=== PATIENT | male | born 1960 | race Caucasian/White ===

== ENCOUNTER 2017-03-02 15:59 | Emergency (ER) | payer OTHER ==
[2017-03-02 16:10] VITALS: BP 135/84; PULSE 84; TEMP 98.1; BMI 23.7
[2017-03-02] MEDS ORDERED: IBUPROFEN 400 MG TABLET (FP) PO ONE ×2 (16:55→16:58)
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
== END 2017-03-02 18:19 | disposition home or self-care (01) ==
LOC: JERFT 15:59 → JER 15:59 → JERFT 18:19
DX: M25.512 Pain in left shoulder (principal); M25.562 Pain in left knee; V89.2XXA Person injured in unspecified motor-vehicle accident, traffic, initial encounter; Y92.488 Other paved roadways as the place of occurrence of the external cause; Y93.9 Activity, unspecified; Y99.9 Unspecified external cause status
CPT/HCPCS: 73562-TC-LT; 99281-25

== ENCOUNTER 2019-04-09 20:44 | Emergency (ER) | payer OTHER ==
[2019-04-09 21:09] VITALS: BP 120/47; PULSE 88; TEMP 98.5; BMI 22.1
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
[2019-04-09] MEDS ORDERED: DIPHTH,PERTUSS(ACELL),TET 0.5 ML DISP.SYRIN IM ONE ×2 (22:59→23:02)
[2019-04-09] MEDS ORDERED: ACETAMINOPHEN 500 MG TABLET (FP) PO ONE (22:59)
[2019-04-09] MEDS ORDERED: ACETAMINOPHEN 500 MG TABLET (FP) ONE (23:01)
[2019-04-09] MEDS ORDERED: KETOROLAC TROMETHAMINE 60 MG/2 ML VIAL IM ONE (23:07)
[2019-04-09] MEDS ORDERED: KETOROLAC TROMETHAMINE 60 MG/2 ML VIAL ONE (23:15)
== END 2019-04-09 23:19 | disposition home or self-care (01) ==
LOC: FER 20:44
PROC: 3E0233Z Introduction of Anti-inflammatory into Muscle, Percutaneous Approach (ICD-10-PCS; principal; 2019-04-09)
PROC: 3E0234Z Introduction of Serum, Toxoid and Vaccine into Muscle, Percutaneous Approach (ICD-10-PCS; 2019-04-09)
DX: S00.01XA Abrasion of scalp, initial encounter (principal); V43.52XA Car driver injured in collision with other type car in traffic accident, initial encounter; Y93.89 Activity, other specified; Y92.410 Unspecified street and highway as the place of occurrence of the external cause; E78.00 Pure hypercholesterolemia, unspecified
CPT/HCPCS: 70450-TC; 90715; 99281-25

== ENCOUNTER 2024-01-11 10:37 | Emergency (ER) | payer OTHER ==
[2024-01-11 14:29] VITALS: BP 132/98; PULSE 110; RESP 16; TEMP 98.6; BMI 24.1
== END 2024-01-11 12:40 | disposition home or self-care (01) ==
LOC: FER 10:37
DX: R22.0 Localized swelling, mass and lump, head (principal); R22.32 Localized swelling, mass and lump, left upper limb; T78.3XXA Angioneurotic edema, initial encounter
CPT/HCPCS: 99283-25